=== PATIENT | male | born 1930 | race Caucasian/White ===

== ENCOUNTER 2017-03-31 14:08 | Emergency (ER) | payer MEDICARE ==
--- NOTE | ~2017-03-31 | EKG ---
PATIENT: JEWELL TAPIA UNIT #: [id number] Ventricular Rate: 69 BPM Atrial Rate: 69 BPM P-R Interval: 182 ms QRS Duration: 88 ms Q-T Interval: 434 ms QTC Calculation(Bezet): 465 ms P Evergreen: 90 degrees Calculated R Evergreen: 31 degrees Calculated T Evergreen: 65 degrees Diagnosis Line: Normal sinus rhythm Diagnosis Line: Normal ECG Diagnosis Line: When compared with ECG of 02-DEC-2014 05:45, Diagnosis Line: KS interval has decreased Diagnosis Line: Confirmed by KIN CHÁVEZ MD ([id number]) on 04/03/2017 Diagnosis Line: 3:58:48 PM INTERPRETING MD: KYLER MATHIS
--- NOTE | ~2017-03-31 | CR72 ---
[facility] A Service of [facility] RADIOLOGY TEXT RESULTS PATIENT: JEWELL TAPIA LOCATION: [facility] : 32 UNIT #: [id number] AGE: [address]: Karel Ingram MD SEX: M ORDER DR: [id number] [facility] [address] [place], [place] [address] [id number] MR#: [id number] Acc #: [id number] NAME: JEWELL TAPIA : 1930 SEX: M STUDY DATE/TIME: 03/31/2017 12:19 UNIT: [facility] ROOM: STUDY DESCRIPTION: CR Chest Single View Portable Attending Physician: Karel Ingram M.D. Ordering Physician: Karel Ingram M.D. Primary Care Physician: Primary Care Physician No MEDICAL IMAGING REPORT This report is preliminary unless electronic signature is present EXAM Chest portable, 03/31/2017 12:19 hours HISTORY 86-year-old man with dizziness and syncope today. COMPARISON 12/01/2014 FINDINGS Portable upright chest demonstrates heart size within normal limits. There is a stable mildly tortuous atherosclerotic aorta. The pulmonary vascularity is normal. The lungs are clear and there are no effusions. There is stable elevation or eventration of the right hemidiaphragm. Degenerative changes noted at the left shoulder likely with chronic rotator cuff tear. IMPRESSION No acute cardiopulmonary findings. Stable elevation or eventration of the right hemidiaphragm. Dictated by... Chelle Mehta M.D. THIS IS AN ELECTRONICALLY VERIFIED REPORT Chelle Mehta M.D. at 03/31/2017 2:31 PM [place] TD: 03/31/2017 13:20 JOB #: [id number] MEDICAL IMAGING REPORT Page 1 of 1 COPY
--- NOTE | ~2017-03-31 | CT71 ---
[facility] A Service of [facility] RADIOLOGY TEXT RESULTS PATIENT: JEWELL TAPIA LOCATION: [facility] : 32 UNIT #: [id number] AGE: [address]: Karel Ingram MD SEX: M ORDER DR: [id number] [facility] [address] [place], [place] [address] [id number] MR#: [id number] [facility] #: [id number] NAME: JEWELL TAPIA : 1930 SEX: M STUDY DATE/TIME: 03/31/2017 12:26 UNIT: [facility] ROOM: STUDY DESCRIPTION: CT Head Wo Contrast Attending Physician: Karel Ingram M.D. Ordering Physician: Karel Ingram M.D. Primary Care Physician: Primary Care Physician No MEDICAL IMAGING REPORT This report is preliminary unless electronic signature is present EXAM CT of the head without contrast INDICATIONS Dizziness starting today. TECHNIQUE Axial CT images were obtained from the vertex of the skull through the skull base. No intravenous contrast was administered. This CT exam was performed with one or more of the following radiation dose reduction techniques: automatic control, adjustment of mA and/or kV according to patient size, and iterative reconstruction. FINDINGS Comparison made to prior exam from December 01, 2014. No acute intracranial hemorrhage is identified. There is diffuse cerebral atrophy with compensatory ventricular dilatation. This is probably progressed when compared to the exam from December 01, 2014. 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 It is fairly extensive and again has progressed when compared to the prior study. There is no midline shift or mass effect. Visualized paranasal sinuses and mastoid air cells appear clear. Patient has calcifications of the cavernous carotid arteries. No focal soft tissue abnormalities are seen. IMPRESSION 1. No acute intracranial process identified. Specifically there is no evidence of acute hemorrhage, mass lesion or acute infarct. 2. Patient does appear to have some progression of cerebral atrophy and extensive microangiopathic disease when compared to exam from December 01, 2014. [facility] A Service [facility] RADIOLOGY TEXT RESULTS PATIENT: JEWELL TAPIA LOCATION: [facility] : 32 UNIT #: [id number] AGE: [address]: Karel Ingram MD SEX: M ORDER DR: Dictated by... Denia Rod M.D. THIS IS AN ELECTRONICALLY VERIFIED REPORT Denia Rod M.D. at 04/01/2017 8:15 AM AFF/rnr TD: 03/31/2017 13:54 JOB #: [id number] MEDICAL IMAGING REPORT Page 1 of 1 COPY
[2017-03-31 13:08] LABS: POC - CKMB 1.8 ng/mL (0.0-7.9); POC - TROPONIN <0.05 ng/mL (<=0.05)
[2017-03-31 13:15] LABS: BASOPHIL% 0.6 % (0-2.5); EOSINOPHIL# 0.1 X10e3 (0-0.7); HEMATOCRIT 49.3 % (38.0-50.0); HEMOGLOBIN 16.4 gm/dL (13.0-16.0); LYMPHOCYTE# 1.3 X10e3 (1.0-3.5); LYMPHOCYTE% 20.5 % (17.0-45.0); MEAN CELL VOLUME 86.6 FL (83-96); MEAN CORPUSCULAR HEMOGLOBIN 28.9 PG (28-34); MEAN CORPUSCULAR HGB CONC 33.3 g/dL (30-36); MEAN PLATELET VOLUME 8.7 FL (6.5-11.5); MONOCYTE# 0.7 X10e3 (0-1.0); MONOCYTE% 10.3 % (3.0-12.0); NEUTROPHIL# 4.2 X10e3 (1.5-7.1); NEUTROPHIL% 66.6 % (40-75); PLATELET COUNT 175 X10e3 (140-420); RED BLOOD COUNT 5.69 X10e (3.90-5.60); WHITE BLOOD COUNT 6.4 X10e3 (4.0-10.5)
[2017-03-31 13:16] LABS: DIFF IND NO
[2017-03-31 13:42] LABS: URINE SOURCE CLEAN CATCH
[2017-03-31 13:49] LABS: URINE APPEARANCE CLOUDY; URINE BLOOD NEG (NEG); URINE COLOR DK YELLOW; URINE GLUCOSE NEG (NEG); URINE KETONE TRACE (NEG); URINE LEUKOCYTE ESTERASE NEG (NEG); URINE NITRATE NEG (NEG); URINE PROTEIN 1+ (NEG); URINE SPECIFIC GRAVITY 1.028 (1.003-1.035)
[2017-03-31 13:51] LABS: URINE BACTERIA AUWI NEG (NEGATIVE); URINE SQUAMOUS EPITHELIAL CELL OCC /[HPF]
[2017-03-31 14:00] LABS: CULTURE INDICATED? NO
[2017-03-31 14:01] LABS: URINE BILIRUBIN NEG (NEG)
[~2017-03-31 14:08] MED LIST: ECOTRIN81 M1 PO; EYE DROPS15 M1 OP; FLORINEF0.1 MG PO; NO MEDICATIONS; PRO-AMATINE5 MG PO; ZOCOR PO; [UNRECOGNIZED DRUG - OTHER] OP
[2017-03-31 14:13] LABS: ALBUMIN SERUM 4.3 g/dL (3.5-5.0); BILIRUBIN, DIRECT 0.2 mg/dL (0.0-0.2); BILIRUBIN,INDIRECT 0.8 mg/dL (0.0-0.9); BUN/CREATININE RATIO 14.16; CALCIUM SERUM 9.5 mg/dL (8.4-10.2); CREATININE SERUM 1.2 mg/dL (0.6-1.4); GLOM FILT RATE Estimated 54.8 mL/min (>60); POTASSIUM 3.8 mmol/L (3.5-5.1); PROTEIN TOTAL SERUM 7.6 g/dL (6.0-8.3)
[2017-03-31 14:48] LABS: POC - CKMB 1.5 ng/mL (0.0-7.9); POC - TROPONIN <0.05 ng/mL (<=0.05)
== END 2017-03-31 15:05 | disposition home or self-care (01) ==
LOC: CED 14:08
PROVIDERS: Emergency Medicine
DX: R42 Dizziness and giddiness (principal)
CPT/HCPCS: 36415; 70450; 71010; 80048; 80076; 81003; 82553; 82947; 84484; 85025; 93005; 96360; 99284